=== PATIENT | male | born 1940 | race Caucasian/White ===

== ENCOUNTER 2016-11-13 09:05 | Outpatient (CLI) | payer OTHER ==
[~2016-11-13] VITALS: Ht 162.6 cm; Wt 74.1 kg
[2016-11-13 09:40] VITALS: BP 148/80; PULSE 96; RESP 18; Ht 162.6 cm; Wt 74.1 kg
[2016-11-13] MEDS ORDERED: LISI20TA11 PO (09:50)
[2016-11-13] MEDS ORDERED: HYD25 PO (09:50)
[2016-11-13] MEDS ORDERED: PROP20TA4 PO (09:50)
--- NOTE | 2016-11-13 11:25 | CONS ---
[facility] INITIAL OUTPATIENT CONSULTATION NOTE DATE OF CONSULTATION: 11/13/2016 PLACE OF SERVICE: [facility]. 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 This appears to be multifocal present within the right lobe of the liver in the setting of a cirrhotic-appearing liver, status post TIPS procedure. I do not believe that the patient can benefit from surgical intervention, mainly because I do not believe that the patient will survive a type of hepatectomy that is needed to remove this tumor. His case is certainly special since after the TIPS procedure, he appears to have rebounded on his platelets, indicating adequate resolution of his portal hypertension. His liver function is acceptable with a normal INR and an elevated bilirubin. I personally do not have any experience in hepatectomy after a TIPS procedure, and will certainly access my network of fellow surgeons to see if there are any in the community or in the academic world that have had this experience. I do not see any literature data to suggest this approach and I did my best to set appropriate expectations for the patient and his family with this information. I will, however, do further research and seek the opinion of our colleagues regarding this matter. I do think that the mainstay of treatment for this gentleman is still transarterial chemoembolization and I explained the rationale behind this recommendation and the procedure in detail as well as the risks, benefits and I believe that the patient and family understand and agree with this plan. We also discussed radioembolization as a secondary option in the realm of possibilities. I do not believe that destruction of tumor with heat, such as radiofrequency ablation is effective in general and this patient's tumor is certainly too large for that to be a mode of treatment. We also discussed briefly systemic chemotherapy and I recommended that they have a discussion with our oncology colleagues regarding this matter. I also obtained the patient 's permission for multidisciplinary tumor board presentation of his case. The patient and family appeared to understand and agreed with the plans. With above assessment, I recommend the followin. Transarterial chemoembolization to right lobe of the liver. 2. Multidisciplinary tumor board presentation. 3. Discussions with oncology and possible need for liver biopsy if absolutely required by them for further treatment. Thank you again for allowing us to participate in the care of this very pleasant gentleman and his wonderful family. If there are any questions, please feel free to contact me at [phone]. TOTAL VISIT TIME: 60 minutes of which more than half was spent in [id number] discussion with the patient, discussion with his son, as well as coordination of care between multiple physicians and providers. UPDATED CLINICAL SUMMARY: The patient is a very pleasant 76-year-old gentleman with comorbidity of BMI 28 as well as severe alcohol abuse over the last 40 years, complicated by cirrhosis that was complicated by portal hypertension and bleeding starting 2011, requiring a TIPS procedure 10/30/2015, presenting with an 11 cm mass that is enhancing on CT scan of abdomen and pelvis in the right lobe of the liver. COMORBIDITIES: 1. BMI 28. 2. Hypertension. 3. Status post abdominal hernia repair. 4. Cirrhosis, likely from alcohol abuse, complicated by portal hypertension and variceal bleeding requiring TIPS procedure 10/2015, and additionally complicated by a newly diagnosed 11 cm mass in the right lobe of the liver 2016. 5. History of bleeding esophageal varices as above, status post multiple endoscopic interventions since 2011. 6. Partial thrombus within portal vein. 7. History of anemia. 8. History of alcohol abuse, drinking heavily for 40 years and quit recently . 9. Elevated alpha-fetoprotein with value of 25 on 07/25/2016 and 8.2 on 2016. 10 Cholelithiasis. 11. Aortic aneurysm without rupture. 12. Osteoarthritis. 13. Status post TIPS procedure 10/2015 as above. 14. Thrombocytopenia with platelets in the 70s and 90s in 2011, but then value of 330 on 09/16/2016. HISTORY OF PRESENT ILLNESS: The patient is a very pleasant but unfortunate 76- year-old gentleman with above-mentioned comorbidities, whom we were kindly asked to consult regarding management of his newly discovered mass in the right lobe of the liver. The patient does not describe any significant weight changes , and his appetite has been unchanged. He does not report any recent issues with GI bleeding after the TIPS procedure, and his family reports some encephalopathy and confusion, but for the most part he is still fairly active and lives at home. ALLERGIES: NO KNOWN DRUG ALLERGIES. MEDICATIONS: 1. Hydrochlorothiazide. 2. Lisinopril. 3. Propranolol. SOCIAL HISTORY: The patient is retired and lives with his girlfriend. He has 6 children. He does not report any current drinking, but he drank heavily for 40 years, consuming several drinks per day on a daily basis. He does not report any major smoking and no intravenous drug use. FAMILY HISTORY: No major medical, surgical or oncologic problems reported in the family. REVIEW OF SYSTEMS: Other than the above-mentioned, there are no other pertinent positives or pertinent negatives in a complete 14-point review of systems. PHYSICAL EXAMINATION: GENERAL: The patient appears to be a very pleasant gentleman of non- descent, appearing stated age, sitting in a chair comfortably and in no acute distress. BMI is 28. VITAL SIGNS: Temperature 97.9, blood pressure 148/80, pulse 96, respiratory rate 18, pulse oximetry 100% on room air. HEENT: Normocephalic and atraumatic. Extraocular muscles and hearing are grossly intact bilaterally and symmetrically. Sclerae are nonicteric. Oral cavity is clear; oral mucosa appeared to be pink and moist. Dentition: fair to poor. NECK: Supple. There is no lymphadenopathy or JVD. There is no submental, submandibular or supraclavicular lymphadenopathy. CHEST: Rises symmetrically with each breath; patient is breathing comfortably. There are no audible wheezes, rales or rhonchi on the gross exam. HEART: Pulse is regular and palpable on the right wrist. Capillary refill was normal. Carotid pulses are palpable bilaterally and symmetrically in the neck. EXTREMITIES: Lower extremities contain no pitting edema around the ankles bilaterally and symmetrically. ABDOMEN: Abdomen is soft, nontender and nondistended. There are no peritoneal signs or guarding. No evidence of ascites, organomegaly, caput medusae, engorged subcutaneous veins, or other abnormalities. SKIN: Appears to be pink and feels warm to touch. NEUROLOGIC: Awake, alert, and follows commands appropriately. LABORATORY DATA: 10/27/2015, BNP 106. CA 19-9 of 26. CEA 0.7. Platelet count 330, white blood cell count 6.2. INR 1.1. Alpha-fetoprotein 8.2. Total bilirubin 2.1, alkaline phosphatase 240, AST 78, ALT 93, albumin 3.3, creatinine 0.80. IMAGING: The patient's latest abdominal CT was on 08/26/2016 where a 7.5 x 11.2 x 8.1 cm mass that was lobulated and heterogeneously enhancing was noted in the right lobe of the liver. Cholelithiasis was seen. No intrahepatic or extrahepatic biliary dilatation was seen. TIPS was seen within right portal vein and middle hepatic vein. Nonocclusive thrombus within the proximal region of the portal vein and within the superior mesenteric vein was noted. Extensive atherosclerotic calcifications of the mildly tortuous abdominal aorta and its major branches was also noted. Mild focal aneurysmal dilatation of the infrarenal aorta measuring up to 2.6 cm in anterior posterior dimension was also noted. Paraesophageal varices were noted. Dictated By: ALLEY ERNANDEZ/NTS Conf#: [id number] DID#: [id number] CC: DEAN RODRIGUEZ MD; ISAAC TATE MD;*EndCC* MTDD
== END 2016-11-13 16:55 | disposition home or self-care (01) ==
LOC: HPC 09:05
PROVIDERS: ATTEND Transplant Surgery
DX: R16.0 Hepatomegaly, not elsewhere classified (principal); K70.30 Alcoholic cirrhosis of liver without ascites; F10.20 Alcohol dependence, uncomplicated; K76.6 Portal hypertension; I10 Essential (primary) hypertension; I85.10 Secondary esophageal varices without bleeding; I81 Portal vein thrombosis; D64.9 Anemia, unspecified; R79.89 Other specified abnormal findings of blood chemistry; K80.20 Calculus of gallbladder without cholecystitis without obstruction; I71.9 Aortic aneurysm of unspecified site, without rupture; M19.90 Unspecified osteoarthritis, unspecified site; D69.6 Thrombocytopenia, unspecified; Z98.890 Other specified postprocedural states
CPT/HCPCS: G0463